=== PATIENT | female | born 1995 | race Caucasian/White ===

== ENCOUNTER 2017-05-13 12:54 | Emergency (ER) | payer BC, OTHER, MEDICAID ==
[~2017-05-13] VITALS: Ht 152.4 cm; Wt 52.2 kg
[~2017-05-13 12:54] MED LIST: ACETAMINOPHEN-1 EAC1 PO; ANTI-ANXIETY; ANTI-VIRAL; BENADRYL25 MG; DEPAKOTE ER500 MG; HYDROCODONE-AP1 EAC6; HYDROCODONE-AP1 EAC6 PO; HYDROXYZINE HCL25 M1; IBUPROFEN 800800 M1 PO; LEVAQUIN 500 M500 M4 PO; LEVAQUIN 750 M750 MG PO; MOBIC7.5 MG PO; VALTREX 500 MG500 M1; VENTOLIN HFA 1818 GM INH; [UNRECOGNIZED DRUG - REMARK]; magic mouthwash PO
[2017-05-13] MEDS ORDERED: IBUPROFEN 800800 M1 PO (14:03)
[2017-05-13 14:15] VITALS: BP 108/50
== END 2017-05-13 14:16 | disposition home or self-care (01) ==
LOC: M.ERS 12:54
DX: S30.0XXA Contusion of lower back and pelvis, initial encounter (principal); F31.9 Bipolar disorder, unspecified; F41.9 Anxiety disorder, unspecified; F90.9 Attention-deficit hyperactivity disorder, unspecified type; W18.39XA Other fall on same level, initial encounter; Y93.89 Activity, other specified; Y92.89 Other specified places as the place of occurrence of the external cause; Y99.8 Other external cause status

== ENCOUNTER 2018-11-22 23:13 | Emergency (ER) | payer BC ==
[~2018-11-22] VITALS: Ht 152.4 cm; Wt 54.4 kg
[2018-11-23] MEDS ORDERED: ACETAMINOPHEN-1 EAC1 PO (00:36)
[2018-11-23] MEDS ORDERED: MEDROLDOSEPACK PO (00:36)
[2018-11-23] MEDS ORDERED: IBUPROFEN 400400 M1 PO (00:36)
[2018-11-23 01:21] VITALS: BP 120/58
== END 2018-11-23 01:22 | disposition home or self-care (01) ==
LOC: M.ERS 23:13
DX: M25.551 Pain in right hip (principal); F31.9 Bipolar disorder, unspecified; F41.9 Anxiety disorder, unspecified; F90.9 Attention-deficit hyperactivity disorder, unspecified type; F17.210 Nicotine dependence, cigarettes, uncomplicated

== ENCOUNTER 2018-12-17 00:50 | Emergency (ER) | payer BC ==
[~2018-12-17] VITALS: Ht 152.4 cm; Wt 54.4 kg
[~2018-12-17 00:50] MED LIST changes: +IBUPROFEN 400400 M1 PO; +MEDROLDOSEPACK PO
[2018-12-17 01:39] LABS: URINE BILIRUBIN NEGATIVE (Negative); URINE BLOOD NEGATIVE (Negative); URINE CLARITY CLEAR; URINE COLOR YELLOW; URINE GLUCOSE-RANDOM NEGATIVE (Negative); URINE KETONES NEGATIVE (Negative); URINE LEUKOCYTES-REFLEX NEGATIVE (Negative); URINE NITRITE-REFLEX NEGATIVE (Negative); URINE PROTEIN NEGATIVE (Negative); URINE UROBILINOGEN 0.2 E.U./dl (0.2-1.0)
[2018-12-17 01:55] LABS: AMP/METHAMP Negative (Negative); BARBITURATES Negative (Negative); BENZODIAZEPINES Negative (Negative); COCAINE Negative (Negative); METHADONE Negative (Negative); OPIATES Negative (Negative); PCP Negative (Negative); THC POSITIVE (Negative)
[2018-12-17] MEDS ORDERED: FLEXERIL PO (02:09)
[2018-12-17] MEDS ORDERED: ACETAMINOPHEN-1 EAC1 PO (02:09)
[2018-12-17 02:21] VITALS: BP 127/65
== END 2018-12-17 02:21 | disposition home or self-care (01) ==
LOC: M.ERS 00:50
PROVIDERS: Emergency Medicine
DX: M54.6 Pain in thoracic spine (principal); F31.9 Bipolar disorder, unspecified; F41.9 Anxiety disorder, unspecified; F90.9 Attention-deficit hyperactivity disorder, unspecified type; Z79.899 Other long term (current) drug therapy

== ENCOUNTER 2019-10-17 15:31 | Emergency (ER) | payer BC ==
[~2019-10-17] VITALS: Ht 152.4 cm; Wt 54.4 kg
[~2019-10-17 15:31] MED LIST changes: +FLEXERIL PO
[2019-10-17 16:52] LABS: URINE BILIRUBIN NEGATIVE (Negative); URINE BLOOD NEGATIVE (Negative); URINE CLARITY SL CLOUDY; URINE COLOR YELLOW; URINE GLUCOSE-RANDOM NEGATIVE (Negative); URINE KETONES NEGATIVE (Negative); URINE LEUKOCYTES-REFLEX NEGATIVE (Negative); URINE NITRITE-REFLEX POSITIVE (Negative); URINE PROTEIN NEGATIVE (Negative)
[2019-10-17 17:13] LABS: BACTERIA-REFLEX >30 Many /HPF (None Seen); CASTS None Seen /LPF (None Seen); CRYSTALS None Seen /LPF (None Seen); MUCUS 4-6 Moderate strn/LPF (None Seen); SQUAMOUS 0-3 Few /LPF (0-3); URINE RBC 0-2 Rare /HPF (0-2); URINE WBC-REFLEX 6-15 Few /HPF (0-5)
[2019-10-17] MEDS ORDERED: NORCO 5-325 TA1 EAC1 PO (18:23)
[2019-10-17] MEDS ORDERED: FLEXERIL PO (18:23)
[2019-10-17] MEDS ORDERED: BACTRIM DS TAB1 EAC1 PO (18:27)
[2019-10-17 18:33] VITALS: BP 116/62
== END 2019-10-17 18:34 | disposition home or self-care (01) ==
LOC: M.ERS 15:31
PROVIDERS: Emergency Medicine Emergency Medical Services
DX: S29.012A Strain of muscle and tendon of back wall of thorax, initial encounter (principal); N39.0 Urinary tract infection, site not specified; F41.9 Anxiety disorder, unspecified; F31.9 Bipolar disorder, unspecified; F90.9 Attention-deficit hyperactivity disorder, unspecified type; Z79.899 Other long term (current) drug therapy; V49.59XA Passenger injured in collision with other motor vehicles in traffic accident, initial encounter; Y93.89 Activity, other specified; Y92.488 Other paved roadways as the place of occurrence of the external cause; Y99.8 Other external cause status

== ENCOUNTER 2020-05-08 19:31 | Emergency (ER) | payer BC ==
[~2020-05-08] VITALS: Ht 165.1 cm; Wt 68.0 kg
[~2020-05-08 19:31] MED LIST changes: +BACTRIM DS TAB1 EAC1 PO; +NORCO 5-325 TA1 EAC1 PO
[2020-05-08] MEDS ORDERED: RISPERDAL 1 MG T1 MG PO (19:39)
[2020-05-08 20:33] LABS: URINE BLOOD NEGATIVE (Negative); URINE CLARITY SL CLOUDY; URINE COLOR YELLOW; URINE GLUCOSE-RANDOM NEGATIVE (Negative); URINE KETONES 1+ (Negative); URINE LEUKOCYTES-REFLEX TRACE (Negative); URINE PROTEIN TRACE (Negative); URINE SPECIFIC GRAVITY >= 1.030 (1.005-1.030); URINE UROBILINOGEN 0.2 E.U./dl (0.2-1.0)
[2020-05-08 20:37] LABS: ICTOTEST (BILI CONFIRMATORY) Negative (Negative); URINE BILIRUBIN 1+ (Negative); URINE NITRITE-REFLEX POSITIVE (Negative)
[2020-05-08 20:43] LABS: CASTS None Seen /LPF (None Seen); SQUAMOUS 4-10 Moderate /LPF (0-3)
[2020-05-08 20:44] LABS: BACTERIA-REFLEX >30 Many /HPF (None Seen); URINE RBC None Seen /HPF (0-2); URINE WBC-REFLEX >25 Many /HPF (0-5)
[2020-05-08 20:45] LABS: CRYSTALS None Seen /LPF (None Seen)
[2020-05-08 20:45] LABS: ABSOLUTE EOSINOPHILS 0.1 thou/uL (0.0-0.7); ABSOLUTE LYMPHOCYTES 2.5 thou/uL (0.8-5.3); ABSOLUTE MONOCYTES 0.4 thou/uL (0.0-1.2); ABSOLUTE NEUTROPHILS 4.2 thou/uL (1.6-8.1); BASOPHILS 0.6 %; EOSINOPHILS 0.8 %; HEMOGLOBIN 15.2 gm/dL (12.0-15.0); LYMPHOCYTES 34.3 %; MCH 30.3 pg (26.0-34.0); MCHC 34.6 g/dL (28.0-37.0); MCV 87.6 fL (80.0-100.0); MONOCYTES 5.9 %; MPV 8.4 fl. (7.2-11.1); NUCLEATED RBCS 0 /100WBC; PLATELET COUNT* 160 thou/uL (150-400); POLYS 58.4 %; RBC 5.02 mil/uL (4.20-5.00); RDW-CV 13.2 % (10.5-14.5); WBC 7.2 thou/uL (4.0-11.0)
[2020-05-08 20:48] LABS: CALCIUM 9.1 mg/dL (8.5-10.1); CREATININE 0.9 mg/dL (0.6-1.3); POTASSIUM 3.7 mmol/L (3.5-5.1)
[2020-05-08] MEDS ORDERED: HYDROCODON-ACE1 EAC8 PO (22:08)
[2020-05-08] MEDS ORDERED: ZOFRAN ODT4 MG PO (22:08)
[2020-05-08 22:19] VITALS: BP 121/52
--- NOTE | 2020-05-10 12:52 | EKG ---
[place] [address] ELECTROCARDIOGRAM REPORT Name: CYDNEY CHOWDHURY Room: [facility]#: [id number] Admission: 05/08/20 Attend Phys: Discharge: 05/08/20 Date of : [birth year] Date of Service: 05/08/201942 Report #: [id number] THIS REPORT FOR: //name// [facility] ED Test Date: 2020-05-08 Test Time: 19:43:00 Pat Name: CYDNEY CHOWDHURY Department: Room: Gender: Clinical Manager: [facility] : 1995 Requested By: Kristal Miranda Order Number: [id number] Leanna MD: Migue Marin Measurements Intervals [place] Rate: 59 P: 65 DE: 110 QRS: 76 QRSD: 97 T: 59 QT: 426 QTc: 422 Interpretive Statements Sinus rhythm Borderline short DE interval No previous ECG available for comparison Electronically Signed On 05-10-2020 12:52:41 [employer] by Migue Marin [email or web address] <ELECTRONICALLY SIGNED> By: Migue Marin MD, [facility] 05/10/20 1252 [id number] 42 Migue Marin MD, FACC /EPI
== END 2020-05-08 22:20 | disposition home or self-care (01) ==
LOC: M.ERS 19:31
PROVIDERS: Emergency Medicine
DX: J93.83 Other pneumothorax (principal); Z79.899 Other long term (current) drug therapy; Z20.828 Contact with and (suspected) exposure to other viral communicable diseases

== ENCOUNTER 2020-05-28 00:55 | Emergency (ER) | payer BC ==
[~2020-05-28] VITALS: Ht 177.8 cm; Wt 52.2 kg
[~2020-05-28 00:55] MED LIST changes: +HYDROCODON-ACE1 EAC8 PO; +RISPERDAL 1 MG T1 MG PO; +ZOFRAN ODT4 MG PO
[2020-05-28 01:23] LABS: HEMATOCRIT 50.5 % (37.0-47.0); HEMOGLOBIN 17.2 gm/dL (12.0-15.0); MCV 88.1 fL (80.0-100.0); MPV 8.8 fl. (7.2-11.1); NUCLEATED RBCS 0 /100WBC; PLATELET COUNT* 191 thou/uL (150-400); RBC 5.73 mil/uL (4.20-5.00); RDW-CV 13.2 % (10.5-14.5); WBC 14.6 thou/uL (4.0-11.0)
[2020-05-28 01:27] LABS: CALCIUM 10.7 mg/dL (8.5-10.1); POTASSIUM 3.5 mmol/L (3.5-5.1)
[2020-05-28 01:31] LABS: TOTAL BILIRUBIN 0.7 mg/dL (<0.1-1.0); TOTAL PROTEIN 8.3 g/dL (6.4-8.2)
[2020-05-28 02:29] LABS: ABSOLUTE MONOCYTES 1.2 thou/uL (0.0-1.2); ABSOLUTE NEUTROPHILS 12.4 thou/uL (1.6-8.1); PLATELET ESTIMATE ADEQUATE; TOXIC GRANULATION 1+
[2020-05-28 03:26] LABS: URINE BILIRUBIN 2+ (Negative); URINE BLOOD NEGATIVE (Negative); URINE CLARITY CLEAR; URINE COLOR YELLOW; URINE GLUCOSE-RANDOM NEGATIVE (Negative); URINE KETONES 2+ (Negative); URINE LEUKOCYTES-REFLEX TRACE (Negative); URINE NITRITE-REFLEX POSITIVE (Negative); URINE PROTEIN 1+ (Negative); URINE SPECIFIC GRAVITY >= 1.030 (1.005-1.030); URINE UROBILINOGEN 0.2 E.U./dl (0.2-1.0)
[2020-05-28 03:29] LABS: BACTERIA-REFLEX >30 Many /HPF (None Seen); CASTS None Seen /LPF (None Seen); CRYSTALS None Seen /LPF (None Seen); MUCUS 4-6 Moderate strn/LPF (None Seen); SQUAMOUS 0-3 Few /LPF (0-3); TRANSITIONAL EPITHEL CELL 0-3 Few /LPF (None Seen); URINE RBC 3-10 Few /HPF (0-2); WBC CLUMPS Moderate (None Seen)
[2020-05-28] MEDS ORDERED: BACTRIM DS TAB1 EACH PO (03:41)
[2020-05-28] MEDS ORDERED: ZOFRAN ODT4 MG PO ×2 (03:41→05:01)
[2020-05-28] MEDS ORDERED: CIPROFLOXACIN500 M1 PO (05:01)
[2020-05-28 06:03] VITALS: BP 110/64
== END 2020-05-28 06:03 | disposition still patient (30) ==
LOC: M.ERS 00:55
PROVIDERS: Emergency Medicine
DX: R10.12 Left upper quadrant pain (principal); R11.2 Nausea with vomiting, unspecified; Z20.822 Contact with and (suspected) exposure to COVID-19

== ENCOUNTER 2021-04-15 17:50 | Emergency (ER) | payer BC ==
[~2021-04-15] VITALS: Ht 152.4 cm; Wt 52.2 kg
[~2021-04-15 17:50] MED LIST changes: +BACTRIM DS TAB1 EACH PO; +CIPROFLOXACIN500 M1 PO
[2021-04-15] MEDS ORDERED: NEURONTIN300 MG PO (18:17)
[2021-04-15] MEDS ORDERED: FLEXERIL PO (20:58)
[2021-04-15] MEDS ORDERED: ZOFRAN ODT4 MG PO (20:58)
[2021-04-15 21:26] VITALS: BP 115/74
== END 2021-04-15 21:27 | disposition home or self-care (01) ==
LOC: M.ERS 17:50
DX: S16.1XXA Strain of muscle, fascia and tendon at neck level, initial encounter (principal); S39.012A Strain of muscle, fascia and tendon of lower back, initial encounter; S29.012A Strain of muscle and tendon of back wall of thorax, initial encounter; S09.90XA Unspecified injury of head, initial encounter; M25.511 Pain in right shoulder; M25.512 Pain in left shoulder; F31.9 Bipolar disorder, unspecified; F41.9 Anxiety disorder, unspecified; F90.9 Attention-deficit hyperactivity disorder, unspecified type; F17.210 Nicotine dependence, cigarettes, uncomplicated; Z79.899 Other long term (current) drug therapy; V43.62XA Car passenger injured in collision with other type car in traffic accident, initial encounter; Y93.89 Activity, other specified; Y92.488 Other paved roadways as the place of occurrence of the external cause; Y99.8 Other external cause status

== ENCOUNTER 2021-04-30 10:50 | Emergency (ER) | payer BC ==
[~2021-04-30 10:50] MED LIST changes: +NEURONTIN300 MG PO
[2021-05-01] MEDS ORDERED: VYVANSE60 MG PO (02:09)
[2021-05-01] MEDS ORDERED: TRAMADOL 50 MG50 MG PO (05:25)
[2021-05-01] MEDS ORDERED: DOXYCYCLINE 10100 MG PO (05:25)
[2021-05-01] MEDS ORDERED: ZOFRAN ODT4 MG PO (05:25)
== END 2021-04-30 11:12 | disposition left against medical advice (07) ==
LOC: M.ERS 10:50
DX: R43.8 Other disturbances of smell and taste (principal); R09.81 Nasal congestion; R09.89 Other specified symptoms and signs involving the circulatory and respiratory systems; Z53.21 Procedure and treatment not carried out due to patient leaving prior to being seen by health care provider

== ENCOUNTER 2021-05-01 01:01 | Emergency (ER) | payer BC ==
[~2021-05-01] VITALS: Ht 152.4 cm; Wt 54.4 kg
[2021-05-01] MEDS ORDERED: VYVANSE60 MG PO (02:09)
[2021-05-01 02:47] LABS: URINE BILIRUBIN NEGATIVE (Negative); URINE BLOOD 3+ (Negative); URINE COLOR YELLOW; URINE GLUCOSE-RANDOM NEGATIVE (Negative); URINE KETONES NEGATIVE (Negative); URINE PROTEIN 1+ (Negative); URINE UROBILINOGEN 0.2 E.U./dl (0.2-1.0)
[2021-05-01 02:50] LABS: URINE LEUKOCYTES-REFLEX 2+ (Negative); URINE NITRITE-REFLEX POSITIVE (Negative)
[2021-05-01 02:51] LABS: URINE CLARITY SL CLOUDY
[2021-05-01 02:59] LABS: BACTERIA-REFLEX >30 Many /HPF (None Seen); CASTS None Seen /LPF (None Seen); CRYSTALS None Seen /LPF (None Seen); MUCUS 0-3 Light strn/LPF (None Seen); SQUAMOUS 0-3 Few /LPF (0-3); URINE WBC-REFLEX >25 Many /HPF (0-5); WBC CLUMPS Moderate (None Seen)
[2021-05-01 04:00] LABS: ABSOLUTE LYMPHOCYTES 0.9 thou/uL (0.8-5.3); ABSOLUTE MONOCYTES 0.4 thou/uL (0.0-1.2); ABSOLUTE NEUTROPHILS 6.5 thou/uL (1.6-8.1); BASOPHILS 0.4 %; EOSINOPHILS 0.2 %; HEMATOCRIT 45.8 % (37.0-47.0); LYMPHOCYTES 11.8 %; MCH 29.9 pg (26.0-34.0); MCHC 35.1 g/dL (28.0-37.0); MCV 85.3 fL (80.0-100.0); MONOCYTES 5.4 %; MPV 8.5 fl. (7.2-11.1); NUCLEATED RBCS 0 /100WBC; PLATELET COUNT* 124 thou/uL (150-400); POLYS 82.2 %; RBC 5.37 mil/uL (4.20-5.00); RDW-CV 12.8 % (10.5-14.5); WBC 7.9 thou/uL (4.0-11.0)
[2021-05-01 04:08] LABS: AMP/METHAMP POSITIVE (Negative); BARBITURATES Negative (Negative); BENZODIAZEPINES Negative (Negative); COCAINE Negative (Negative); METHADONE Negative (Negative); OPIATES Negative (Negative); PCP Negative (Negative); THC POSITIVE (Negative)
[2021-05-01 04:33] LABS: CALCIUM 9.4 mg/dL (8.5-10.1); CREATININE 0.9 mg/dL (0.6-1.3)
[2021-05-01 04:37] LABS: TOTAL BILIRUBIN 0.3 mg/dL (<0.1-1.0); TOTAL PROTEIN 7.9 g/dL (6.4-8.2)
[2021-05-01] MEDS ORDERED: TRAMADOL 50 MG50 MG PO (05:25)
[2021-05-01] MEDS ORDERED: ZOFRAN ODT4 MG PO (05:25)
[2021-05-01] MEDS ORDERED: DOXYCYCLINE 10100 MG PO (05:25)
[2021-05-01 05:35] VITALS: BP 121/66
== END 2021-05-01 05:35 | disposition home or self-care (01) ==
LOC: M.ERS 01:01
PROVIDERS: Emergency Medicine
DX: U07.1 COVID-19 (principal); N39.0 Urinary tract infection, site not specified; F31.9 Bipolar disorder, unspecified; F41.9 Anxiety disorder, unspecified; F90.9 Attention-deficit hyperactivity disorder, unspecified type; Z79.899 Other long term (current) drug therapy